=== PATIENT | female | born 1980 | race Caucasian/White ===

== ENCOUNTER 2019-07-01 17:32 | Emergency (ER) | payer BC ==
[~2019-07-01] VITALS: Ht 154.9 cm; Wt 54.4 kg
--- NOTE | 2019-07-01 18:35 | NUR ---
Dr Nicholson at the bedside for MSE.
[2019-07-01] MEDS ORDERED: HYDROMORPHONE 1 MG/1 ML DISP.SYRIN IM ONE (18:45)
[2019-07-01] MEDS ORDERED: ONDANSETRON 4 MG/2 ML VIAL IM ONE (18:45)
[2019-07-01] MEDS ORDERED: ONDANSETRON 4 MG/2 ML VIAL ONE (18:52)
[2019-07-01] MEDS ORDERED: HYDROMORPHONE 1 MG/1 ML DISP.SYRIN ONE (18:52)
--- NOTE | 2019-07-01 19:19 | NUR ---
Hand off and SBAR received fr outgoing day shift RN PT NAD asleep but arousable RA monitored accordingly
[2019-07-01 19:34] LABS: *BILIRUBIN,URIN NEGATIVE (NEGATIVE); *BLOOD, URINE NEGATIVE (NEGATIVE); *CLARITY,URINE SLIGHTLY CLOUDY (CLEAR); *COLOR,URINE YELLOW (YELLOW); *KETONES,URINE NEGATIVE (NEGATIVE); *UROBILINOGEN,URINE 0.2 E.U./dl (NORMAL); LEUKOCYTE ESTERASE ,URINE NEGATIVE (NEGATIVE); NITRITE, URINE NEGATIVE (NEGATIVE); PH,URINE 7.5 (5.0-8.0); UGLUCOSE NEGATIVE (NEGATIVE)
[2019-07-01 19:35] LABS: *URINE HCG, QUAL NEGATIVE (NEGATIVE)
--- NOTE | 2019-07-01 19:40 | NUR ---
Patient discharged to home in stable conditon. Written and verbal after care instructions given. Patient verbalizes understanding of instructions. AMBULATORY W/ STABLE GAIT ALL BELONGINGS W/ PT [address] DR[address]
[2019-07-01 19:42] VITALS: BP 129/90
[2019-07-01 19:46] LABS: BACTERIA,URINE MODERATE /HPF (NONE SEEN); RBC,URINE 0-3 /HPF (0-3); SQUAMOUS EPITHELIAL CELL,UR MANY /HPF (NONE SEEN); URINE AMORPHOUS PHOSPHATES MANY /HPF
== END 2019-07-01 19:42 | disposition home or self-care (01) ==
LOC: ER 17:33
DX: G43.909 Migraine, unspecified, not intractable, without status migrainosus (principal)
CPT/HCPCS: 70450; 72125; 81000; 81001; 84703; 87086; 96372 ×2; 99284; J1170; J2405; A4663